=== PATIENT | male | born 1990 | race Caucasian/White ===

== ENCOUNTER 2018-12-29 12:32 | Emergency (ER) | payer OTHER, BC ==
[~2018-12-29] VITALS: Ht 167.6 cm; Wt 56.8 kg
[2018-12-29 12:36] VITALS: BP 140/79
[2018-12-29] MEDS ORDERED: LIDOCAINE 2% MDV 20 ML VIAL SC ONE (13:00)
== END 2018-12-29 13:35 | disposition home or self-care (01) ==
LOC: EDBD 12:32 → M ED 12:32
DX: S61.217A Laceration without foreign body of left little finger without damage to nail, initial encounter (principal); W26.8XXA Contact with other sharp object(s), not elsewhere classified, initial encounter; Y99.1 Military activity

== ENCOUNTER 2024-05-24 07:05 | Emergency (ER) | payer BC, OTHER ==
[~2024-05-24] VITALS: Ht 170.2 cm; Wt 66.4 kg
[2024-05-24] MEDS: ASPIRIN 81MG CHEW TABLET PO ONE (07:36)
[2024-05-24 07:43] LABS: BASO % 0.6 % (0.0-1.0); EOS # 0.1 10^3/uL (0.0-0.5); EOS % 0.9 % (0.0-3.0); HEMOGLOBIN 17.9 g/dl (13.5-17.5); LYMPH # 1.4 10^3/uL (1.5-5.0); LYMPH % 22.1 % (24.0-44.0); MEAN CORPUSCULAR HEMOGLOBIN 30.8 pg (27.0-33.0); MEAN CORPUSCULAR HGB CONC 35.1 g/dl (32.0-36.5); MEAN CORPUSCULAR VOLUME 87.8 fl (80.0-96.0); MONO # 0.5 10^3/uL (0.0-0.8); NEUTROPHILS # 4.5 10^3/uL (1.5-8.5); NEUTROPHILS % 69.2 % (36.0-66.0); PLATELET COUNT, AUTOMATED 270 10^3/uL (150-450); RED BLOOD COUNT 5.81 10^6/uL (4.30-6.10); WHITE BLOOD COUNT 6.5 10^3/uL (4.0-10.0)
[2024-05-24 07:55] LABS: INR 0.92; PARTIAL THROMBOPLASTIN TIME 27.5 SECONDS (24.8-34.2); PROTHROMBIN TIME 12.7 SECONDS (12.5-14.5)
[2024-05-24 08:19] VITALS: BP 119/79
[2024-05-24] MEDS: NITROGLYCERIN 0.4MG SUBL TABLET SL STA (08:19)
[2024-05-24 08:21] LABS: ALBUMIN 4.1 G/DL (3.2-5.2); ALKALINE PHOSPHATASE 59 U/L (40-129); ALT/SGPT 35 U/L (7.0-40); AST/SGOT 44 U/L (<34); BILIRUBIN,DIRECT 0.1 MG/DL (<0.4); BILIRUBIN,TOTAL 0.7 MG/DL (0.3-1.2); BLOOD UREA NITROGEN 14 MG/DL (9-23); CALCIUM LEVEL 9.2 MG/DL (8.5-10.1); CARBON DIOXIDE LEVEL 29 MMOL/L (20-31); CHLORIDE LEVEL 102 MMOL/L (98-107); CK-MB VALUE MASS < 1.0 NG/ML (<3.6); CPK CREATINE PHOSPHOKINASE 111 U/L (46-171); CREATININE FOR GFR 0.95 MG/DL (0.70-1.30); GLOMERULAR FILTRATION RATE > 60.0 (>60); GLUCOSE, FASTING 112 MG/DL (60-100); LIPASE 55 U/L (12-53); POTASSIUM SERUM 4.8 MMOL/L (3.5-5.1); SODIUM LEVEL 139 MMOL/L (136-145); TOTAL PROTEIN 7.7 G/DL (5.7-8.2)
[2024-05-24] MEDS ORDERED: ISOVUE-370 76% 100ML VIAL As Ordered ONE (08:42)
[2024-05-24 09:18] LABS: CK-MB VALUE MASS < 1.0 NG/ML (<3.6)
[2024-05-24 09:45] LABS: CPK CREATINE PHOSPHOKINASE 79 U/L (46-171); MB/CK RELATIVE INDEX 1.26 (< OR =4)
[2024-05-24 11:30] VITALS: BP 123/72; TEMP 97.1; O2SAT 97
== END 2024-05-24 11:39 | disposition home or self-care (01) ==
LOC: M ED 07:05
DX: R07.9 Chest pain, unspecified (principal); I45.10 Unspecified right bundle-branch block; I51.7 Cardiomegaly
CPT/HCPCS: 36415; 71046; 71275; 74177; 80048; 80076; 82550; 82553; 83690; 84484; 85025; 85610; 85730; 93005; 93041; 94760; 99285; Q9967

== ENCOUNTER 2024-07-23 12:47 | Observation (INO) | payer BC ==
[~2024-07-23] VITALS: Ht 170.2 cm; Wt 65.5 kg
[2024-07-23 13:25] LABS: BASO # 0.1 10^3/uL (0.0-0.2); BASO % 0.6 % (0.0-1.0); EOS # 0.1 10^3/uL (0.0-0.5); EOS % 1.3 % (0.0-3.0); HEMATOCRIT 48.6 % (42.0-52.0); LYMPH # 2.1 10^3/uL (1.5-5.0); LYMPH % 22.8 % (24.0-44.0); MEAN CORPUSCULAR HEMOGLOBIN 30.5 pg (27.0-33.0); MEAN CORPUSCULAR VOLUME 87.1 fl (80.0-96.0); MONO # 0.5 10^3/uL (0.0-0.8); NEUTROPHILS # 6.3 10^3/uL (1.5-8.5); NEUTROPHILS % 69.1 % (36.0-66.0); PLATELET COUNT, AUTOMATED 293 10^3/uL (150-450); RED BLOOD COUNT 5.58 10^6/uL (4.30-6.10); WHITE BLOOD COUNT 9.1 10^3/uL (4.0-10.0)
[2024-07-23 13:34] VITALS: BP 140/83; TEMP 97.2; O2SAT 97
[2024-07-23 13:37] LABS: INR 0.98; PARTIAL THROMBOPLASTIN TIME 27.8 SECONDS (24.8-34.2); PROTHROMBIN TIME 13.3 SECONDS (12.5-14.5)
[2024-07-23 13:52] LABS: ALBUMIN 4.1 G/DL (3.2-5.2); ALKALINE PHOSPHATASE 60 U/L (40-129); ALT/SGPT 24 U/L (7.0-40); AST/SGOT 25 U/L (<34); BILIRUBIN,DIRECT 0.2 MG/DL (<0.4); BILIRUBIN,TOTAL 0.6 MG/DL (0.3-1.2); BLOOD UREA NITROGEN 14 MG/DL (9-23); CALCIUM LEVEL 9.2 MG/DL (8.5-10.1); CARBON DIOXIDE LEVEL 31 MMOL/L (20-31); CHLORIDE LEVEL 100 MMOL/L (98-107); CK-MB VALUE MASS < 1.0 NG/ML (<3.6); CREATININE FOR GFR 0.92 MG/DL (0.70-1.30); GLOMERULAR FILTRATION RATE > 90.0 (>60); GLUCOSE, FASTING 149 MG/DL (60-100); POTASSIUM SERUM 3.6 MMOL/L (3.5-5.1); SODIUM LEVEL 138 MMOL/L (136-145); TOTAL PROTEIN 7.2 G/DL (5.7-8.2)
[2024-07-23 13:54] LABS: FREE T4 1.17 NG/DL (0.89-1.76); THYROID STIMULATING HORMONE 0.762 uIU/ML (0.55-4.78)
[2024-07-23 13:56] LABS: CPK CREATINE PHOSPHOKINASE 129 U/L (46-171); MB/CK RELATIVE INDEX 0.77 (< OR =4)
[2024-07-23 14:52] LABS: CK-MB VALUE MASS < 1.0 NG/ML (<3.6)
[2024-07-23 14:57] LABS: CPK CREATINE PHOSPHOKINASE 111 U/L (46-171)
[2024-07-23] MEDS ORDERED: ISOVUE-370 76% 100ML VIAL As Ordered ONE (15:17)
[2024-07-23] MEDS ORDERED: HOME MED LIST COMPLETE! XX SCH (15:55)
[2024-07-23 17:37] VITALS: BP 124/62; O2SAT 100
[2024-07-23] MEDS: CLOPIDOGREL 75 MG TAB PO ONE (17:50)
[2024-07-23] MEDS: ASPIRIN 81MG ENTERIC TABLET PO SCH (17:50)
[2024-07-23 18:23] LABS: INR 0.94; PARTIAL THROMBOPLASTIN TIME 27.9 SECONDS (24.8-34.2); PROTHROMBIN TIME 12.8 SECONDS (12.5-14.5)
[2024-07-23 19:47] VITALS: BP 127/69; TEMP 97.7; O2SAT 97
[2024-07-23 23:56] VITALS: BP 116/57; TEMP 97; O2SAT 98
[2024-07-24 03:56] VITALS: BP 121/66; TEMP 97.2; O2SAT 97
[2024-07-24 07:10] LABS: C REACTIVE PROTEIN QUANTITATIV < 0.50 MG/DL (<1.0); CHOLESTEROL LEVEL 190 MG/DL (<200); CHOLESTEROL RISK RATIO 5.24 (<5); HDL CHOLESTEROL 36.2 MG/DL (>40); LDL CHOLESTEROL 135.2 MG/DL (<100); NON-HDL-C 153.8 MG/DL; TRIGLYCERIDES LEVEL 93 MG/DL (<150)
[2024-07-24 07:12] LABS: VITAMIN B12 LEVEL 466 PG/ML (211-911)
[2024-07-24 07:13] LABS: TOTAL 25(OH) VITAMIN D 18.1 NG/ML (20.0-100.0)
[2024-07-24 07:46] VITALS: BP 117/60; TEMP 97.1; O2SAT 97
[2024-07-24 07:56] LABS: HEMOGLOBIN A1c 5.2 % (4.0-6.0)
[2024-07-24] MEDS ORDERED: CLOPIDOGREL 75 MG TAB PO SCH (09:00)
[2024-07-24] MEDS: ENOXAPARIN 40MG/0.4ML SYRINGE (J1650 PER 10MG) SC SCH (09:10)
[2024-07-24] MEDS ORDERED: ATOR1TAB21 PO (10:32)
[2024-07-24] MEDS ORDERED: ASPI81TAEC PO (10:32)
[2024-07-24] MEDS: ATORVASTATIN 20 MG TAB PO SCH (11:43)
[2024-07-24] MEDS: VITAMIN D 50,000 UNITS CAPSULE (ERGOCALCIFEROL 1.25MG) PO ONE (11:43)
[2024-07-24] MEDS ORDERED: ERGO500029 PO (11:57)
[2024-07-26 15:43] LABS: HOMOCYST(E)INE SERUM 6.6 umol/L (<11.4)
[2024-07-27 01:06] LABS: CARDIOLIPIN IGA ANTIBODY < 2.0 APL-U/mL (<20.0); CARDIOLIPIN IGG ANTIBODY < 2.0 GPL-U/mL (<20.0); CARDIOLIPIN IGM ANTIBODY < 2.0 MPL-U/mL (<20.0)
[2024-07-27 08:42] LABS: ANA SCREEN, IFA NEGATIVE (NEGATIVE)
[2024-07-27 14:33] LABS: LYME TOTAL ANTIBODY CIA <= 0.90 Index (<=0.90)
[2024-07-28 14:53] LABS: PROTEIN S ANTIGEN FREE 100 % normal (57-171); PROTEIN S ANTIGEN TOTAL 93 % normal (70-140)
[2024-07-29 00:12] LABS: ANTI THROMBIN 3 ANTIGEN IMMUNO 103 % normal (80-120)
== END 2024-07-24 12:33 | disposition home or self-care (01) ==
LOC: M ED 12:47 → M ED INP 12:48 → M PCU 17:33
PROVIDERS: ADMIT Student in an Organized Health Care Education/Training Program; ATTEND Student in an Organized Health Care Education/Training Program
DX: R29.810 Facial weakness (principal); R20.2 Paresthesia of skin; F41.9 Anxiety disorder, unspecified; E78.5 Hyperlipidemia, unspecified; Z79.82 Long term (current) use of aspirin; Z79.899 Other long term (current) drug therapy
CPT/HCPCS: 36415; 70450; 70496; 70498; 70544; 70551; 71045; 80047; 80048; 80061; 80076; 81240; 82306; 82550; 82553; 82607; 83036; 83090; 84439; 84443; 84484; 85025; 85240; 85245; 85246; 85301; 85302; 85305; 85306; 85610; 85613; 85652; 85730; 86036; 86038; 86140; 86147; 86431; 86618; 93005; 93041; 93306; 94760; 96372; 97161; 99285; J1650; Q9967